=== PATIENT | male | born 1950 | race Caucasian/White ===

== ENCOUNTER 2024-12-29 08:20 | Outpatient (REF) | payer MEDICARE, SELFPAY ==
--- NOTE | ~2024-12-29 | XR_ITS ---
CLINICAL HISTORY: M25.511 - Pain in right shoulder 2 view right shoulder Comparison: None Findings: No fractures or dislocations. Moderate DJD of the acromioclavicular joint with joint space No erosions. No radiopaque foreign body. IMPRESSION: 1. No acute findings. Moderate DJD of the AC joint. This document has been electronically signed by: Jose Vieira MD on 12/30/2024 18:57:24
--- OUTSIDE RECORDS SUMMARY | 2025-01-01 08:41 | XMS_ITS | Clinical Summary ---
Author Organization [facility] 230 [facility] lding Address [address] [place] [address] Phone Care Team Providers Care Medical Scribe Name Role Phone Paula Cool MD Primary Care Provider [phone] Allergies No known active allergies Medications Medication [...] EGD Dr Jolly in past History of [place] (myocardial infarction) 07/25/2016 Overview (11/05/2024): [place] 1990; stents [address] Velasco, [facility] 09/16. PTCA RCA Hypercholesteremia 07/25/2016 Inguinal hernia 07/25/2016 Overview (11/05/2024): CT 6/15 fat containing, right Encounters Date Type Department Care Team Description 11/19/2024 Telephone Adult [address] [phone] Paula Cool MD 11/17/2024 3:30 PM EST Office Visit Adult [facility] [address] [place] [phone] Jonh Hunt PA Postnasal drip (Primary Dx); Nasal congestion 11/17/2024 Telephone Adult [address] [phone] Paula Cool MD Sinusitis from Last 3 Months Immunizations Name Administration [...] 10:45 AM EDT Office Visit Adult Medicine - [place] [address] [place] [address] Paula Cool MD [address] [place] [address] Health Maintenance Due Date Last Done Comments [...] * Annual BMP Blood Test (07/29/2024) Pathologist [facility] Annual BMP Blood Test abstracted Historical Provider MD LUIS ANTONIO Carranza * Lipid panel (07/29/2024) [facility] LDL/HDL Ratio 4 0 - 4 Triglycerides 74 0 - 150 mg/dL Cholesterol 153 0 - 200 mg/dL HDL 43 40 mg/dL LDL Cholesterol 96 0 - 100 mg/dL Blood Venous blood specimen / Unknown Historical Provider LAB BLOOD ORDERAB LES * Hepatitis C Screening (08/18/2019) [facility] Hepatitis C Screening abstracted Historical Provider MD LUIS ANTONIO Carranza from Last 3 Months or Most Recently Relevant to Health Maintenance Care Teams Medical Scribe Relationship Specialty Start Date End Date Paula Cool MD [address] [place] [address] PCP - General Internal Medicine 02/28/21
== END 2024-12-29 08:21 | disposition home or self-care (01) ==
LOC: HO.HOSX 08:20
PROVIDERS: Visit Provider Orthopaedic Surgery
DX: M25.511 Pain in right shoulder (principal); M75.101 Unspecified rotator cuff tear or rupture of right shoulder, not specified as traumatic
CPT/HCPCS: 73030; 99202

== ENCOUNTER 2024-12-29 14:46 | Outpatient (AMB) | payer MEDICARE, SELFPAY ==
--- OUTSIDE RECORDS SUMMARY | 2024-12-29 14:48 | XMS_ITS | Clinical Summary ---
Author Organization [facility] 230 [facility] lding Address [address] [place] [address] Phone Care Team Providers Care Professional Fee Coder Name Role Phone Paula Cool MD Primary Care Provider [phone] Allergies No known active allergies Medications Medication Sig Dispensed Refills Start Date End Date Status sildenafiL (VIAGRA) 50 mg tablet Take 1 tablet (50 mg total) by mouth if needed for erectile dysfunction. 04/04/2022 Active atorvastatin (LIPITOR) 80 mg tablet Take 1 tablet (80 mg total) by mouth 1 (one) time each day. 90 each 1 10/05/2024 Active levothyroxine (SYNTHROID, LEVOTHROID) 50 mcg tablet Take 1 tablet (50 mcg total) by mouth 1 (one) time each day. 90 each 1 10/05/2024 Active omeprazole (PriLOSEC) [address] capsule Take 1 capsule (20 mg total) by mouth 1 (one) time each day. 90 each 1 10/05/2024 Active tamsulosin (FLOMAX) 0.4 mg 24 hr capsule Take 1 capsule (0.4 mg total) by mouth 1 (one) time each day. 90 capsule 12/03/2024 Active tamsulosin (FLOMAX) 0.4 mg 24 hr capsule Take 1 capsule (0.4 mg total) by mouth. 03/20/2017 12/03/2024 Discontinued (Reorder) Active Problems Problem Noted Date Diagnosed Date Hyperlipidemia 11/05/2024 Hypertension 03/02/2024 Sciatica of right side 08/21/2022 Asthma 04/10/2022 Overview (11/05/2024): PVP 08/16 Obesity (BMI 30-39.9) 08/07/2021 Hydronephrosis 03/05/2021 Overview (11/05/2024): hosp 03/15 Moderate tricuspid regurgitation 02/16/2019 Mild aortic stenosis 10/25/2016 Overview (11/05/2024): Echo 2015, Dr velasco Hypothyroidism 08/28/2016 Benign prostatic hyperplasia 07/25/2016 DDD (degenerative disc disease), lumbar 07/25/20 16 Overview (11/05/2024): CT 6/15 Foot drop, left 07/25/2016 Overview (11/05/2024): MRI 07/08 Multilevel spondylitic changes throughout LS spine GERD (gastroesophageal reflux disease) 6 Overview (11/05/2024): Had EGD Dr Jolly in past History of [place] (myocardial infarction) 07/25/2016 Overview (11/05/2024): [place] 1990; stents [address] Velasco, [facility] 09/16. PTCA RCA Hypercholesteremia 07/25/2016 Inguinal hernia 07/25/2016 Overview (11/05/2024): CT 6/15 fat containing, right Encounters Date Type Department Care Team Description 11/19/2024 Telephone Adult [address] [phone] Paula Cool MD 11/17/2024 3:30 PM EST Office Visit Adult [facility] [address] [place] [phone] Jonh Hunt PA Postnasal drip (Primary Dx); Nasal congestion 11/17/2024 Telephone Adult [facility] [address] [place] [phone] Paula Cool MD Sinusitis 09/30/2024 Telephone Adult [facility] [address] [place] [phone] Paula Cool MD Med Refill from Last 3 Months Immunizations Name Administration Dates Next Due Influenza Quadravalent, MDCK , 0.5ml, preservative free (Flucelvax) 6mo and older 02/08/2020 Influenza trivalent, 0.5mL ( Fluad) 65yo and older 09/01/2024,08/11/2023,08/21/2022,08/07,08/16/2020 Pfizer (ages 12 & older) Biv alent, COVID-19 08/11/2023 Pfizer SARS-CoV-2 COVID-19, mRNA, LNP-S, preservative free 09/08/2022,03/05/2022,08/23/2021,02/19,01/29/2021 Pneumococcal conjugate 13 va lent (Prevnar 13, PCV13) 2mo and older 02/16/2019 Pneumococcal polysaccharide 23 valent (Pneumovax 23) 2yo and older 08/16/2020 Tdap Tetanus diptheria acell ular pertussis (Boostrix; Adacel) 7yo and older 02/13/2018 Surgical History Surgery Date Site/Laterality Comments HERNIA REPAIR Left PROCEDURE: HISTORICAL HERNIA REPAIR/ING; COMMENT: inguinal CARDIAC CATHETERIZATION 1997; 2006 PROCEDURE: HISTORICAL CARDIAC CATH; COMMENT: stents Medical History Medical History Date Comments GERD (gastroesophageal reflux disease) 07/25/2016 DX:GERD (gastroesophageal reflux disease) Hyperlipidemia 07/25/2016 DX:Hyperlipidemi a Foot drop, right 07/25/2016 DX:Foot drop, r ight BPH (benign prostatic hypertrophy) 07/25/2016 DX:BPH (benign prostatic hypertrophy) Foot drop, left 07/25/2016 DX:Foot drop, le ft Mild aortic stenosis 10/25/2016 DX:Mild aor tic stenosis; COMMENT: Echo 2015, Dr velasco Colon cancer screening 07/08/2017 DX:Colon cancer screening; COMMENT: [place] j[place] 01/2017 Family History Medical History Relation Name Comments Coronary artery disease Brother 1 Coronary artery disease Brother 2 Heart attack Brother 2 No Known Problems Brother 3 Heart attack Father Other cancer Father bladder Other: heart Mother No Known Problems Son 1 No Known Problems Son 2 Relation Name Status Comments Brother 1 Alive Brother 2 Alive Brother 3 Alive Father Mother Son 1 Alive Son 2 Alive Social History Tobacco Use Types Packs/Day Years Used Date Smoking Tobacco: Never Smokeless Tobacco: Never Alcohol Use Standard Drinks/Week Comments No 0 (1 standard drink = 0.6 oz pur e alcohol) Sex and Gender Information Value Date Recorded Sex Assigned at Not on file Gender Identity Not on file Sexual Orientation Not on file Obstetrics History Last Filed Vital Signs Vital Sign Reading Time Taken Comments Blood Pressure 109/58 11/17/2024 2:06 PM EST Pulse 80 11/17/2024 2:06 PM EST Temperature 36.2 ??C (97.1 ??F) 11/17/2024 2:06 PM ES T Respiratory Rate - - Oxygen Saturation - - Inhaled Oxygen Concentration - - Weight 83.7 kg (184 lb 9.6 oz) 11/17/2024 2:06 P M EST Height 165.1 cm (5' 5 ) 11/17/2024 2:06 PM EST Body Mass Index 30.72 11/17/2024 2:06 PM EST Plan of Treatment Upcoming Encounters Date Type Department Care Team (Late st Contact Info) Description 03/02/2025 10:45 AM EDT Office Visit Adult Medicine [facility] [address] [place] [address] Paula Cool MD [address] [place] [address] Health Maintenance Due Date Last Done Comments Zoster Vaccines (1 of 2) 1969 Depression Screening 11/03/2022 Falls Risk Assessment 11/03/2022 Social Influencers of Health Screening 11/03/2022 Medicare Annual Wellness Visit 08/22/2024 08/22/2023 Hypertension/CHF/CAD Annual BMP Blood Test 07/29/2025 07/29/2024, 07/29/2024 DTaP,Tdap,and Td Vaccines (2 - Td or Tdap) 02/14/2028 02/13/2018 Cholesterol Screening (Lipid Panel) 07/29/2029 07/29/2024, 07/29/2024 Hepatitis C Screening Completed 08/18/2019 Pneumococcal Vaccine: 65+ Years Completed 08/16/2020, 02/16/2019, 05/04/2014 RSV Immunization Patients 60+ Years Old Completed 11/08/2023 Influenza Vaccine Completed 09/01/2024, , 08/21/2022, Additional history exists COVID-19 Vaccine Completed 09/04/2024, , 09/08/2022, Additional history exists HIB Vaccines Aged Out No longer eligi ble based on patient's age to complete this topic HPV Vaccines Aged Out No longer eligi ble based on patient's age to complete this topic Hepatitis A Vaccines Aged Out No long er eligible based on patient's age to complete this topic Hepatitis B Vaccines Aged Out No long er eligible based on patient's age to complete this topic IPV Vaccines Aged Out No longer eligi ble based on patient's age to complete this topic MMR Vaccines Aged Out No longer eligi ble based on patient's age to complete this topic Meningococcal ACWY Vaccine Aged Out N o longer eligible based on patient's age to complete this topic RSV Immunization Patients Under 20 months Aged Out No longer eligible based on patient's age to complete this topic Varicella Vaccines Aged Out No longer eligible based on patient's age to complete this topic Procedures Procedure Name Priority Date/Time Associated Diagnosis Comments ANNUAL BMP BLOOD TEST Routine 07/29/2024 LIPID PANEL Routine 07/29/2024 HEPATITIS C SCREENING Routine 08/18/2019 from Last 3 Months or Most Recently Relevant to Health Maintenance Results * Annual BMP Blood Test (07/29/2024) Pathologist [facility] Annual BMP Blood Test abstracted Historical Provider MD LUIS ANTONIO FOX E * Lipid panel (07/29/2024) [facility] LDL/HDL Ratio 4 0 - 4 Triglycerides 74 0 - 150 mg/dL Cholesterol 153 0 - 200 mg/dL HDL 43 40 mg/dL LDL Cholesterol 96 0 - 100 mg/dL Blood Venous blood specimen / Unknown Historical Provider LAB BLOOD ORDERAB LES * Hepatitis C Screening (08/18/2019) [facility] Hepatitis C Screening abstracted Historical Provider MD LUIS ANTONIO Carranza from Last 3 Months or Most Recently Relevant to Health Maintenance Care Teams Professional Fee Coder Relationship Specialty Start Date End Date Paula Cool MD [address] [place] [address] PCP - General Internal Medicine 02/28/21
--- NOTE | 2024-12-29 15:14 | A.OFFVIS_ITS ---
Intake Visit Reasons: Right shoulder pain and weakness Intake Note: Elvis is a 74 year old male who presents with complaints of progressively worsening right shoulder pain and weakness. The patient describes his pain as sharp in nature. Most of the pain is along the lateral and superior aspects of his shoulder. Symptoms have gotten worse over the last few years in spite of continued non operative treatments. He has had cortisone injections in the past. The most recent injection gave him minimal relief. The patient reports weakness when lifting his right hand above shoulder height. He has been to physical therapy for a total of 8 weeks. The therapy seemed to help with his range of motion but not his strength or discomfort. He has tried Tylenol and anti-inflammatory medicines which gave him minimal relief. Allergies No Known Allergies Allergy (Verified 12/29/24 15:18) Physical Exam Const Other: Well-nourished well-developed very friendly male awake alert and oriented x3 in no acute distress Extrem Other: Bilateral upper extremity examination shows good capillary refill, no skin lesio ns noted, normal sensation light touch Right shoulder examination shows slightly decreased range of motion when compared to his left shoulder, 4/5 strength with supraspinatus testing, positive impingement signs, no instability Results Reviewed Results Reviewed: X-rays of the patient's right shoulder show severe acromioclavicular joint narrowing, a type 3 acromion, no acute bony abnormalities Assessment & Plan Assessment & Plan (1) Unspecified rotator cuff tear or rupture of right shoulder, not specified as traumatic: Code(s): M75.101 - Unspecified rotator cuff tear or rupture of right shoulder, not specified as traumatic Category: Medical Plan Mr. Ivan presents with progressively worsening right shoulder pain and weakness due to impingement syndrome, acromioclavicular joint arthritis and possible full-thickness rotator cuff tearing. Thus, I will order an MRI of his right shoulder for further evaluation. I will see him back once the MRI is completed to discuss the findings and treatment options. Feel free to call me at any time should questions regarding his orthopedic management arise. Thank you very much for asking me to see this very friendly gentleman. I spent 20 minutes in reviewing the patient's records and imaging studies, seeing the patient and documenting in the medical record. Orders: Orders XR shoulder RT min 2V Today M25.511 - Pain in right shoulder MR shoulder RT wo con Today M75.101 - Unspecified rotator cuff tear or rupture of right shoulder, not specified as traumatic Coding Level of Care Code New Pt Level 3 (31153) Complex EM visit Add On G2211 Diagnoses Unspecified rotator cuff tear or rupture of right shoulder, not specified as traumatic M75.101
== END 2024-12-29 15:48 | disposition home or self-care (01) ==
PROVIDERS: PCP Pediatrics; Visit Provider Orthopaedic Surgery
DX: M75.101 Unspecified rotator cuff tear or rupture of right shoulder, not specified as traumatic (principal); M75.41 Impingement syndrome of right shoulder; M19.011 Primary osteoarthritis, right shoulder
CPT/HCPCS: 99203; G2211

== ENCOUNTER → 2024-12-29 14:55 | Outpatient (BNV) | payer MEDICARE, BC, SELFPAY | PROVIDERS: Visit Provider Student in an Organized Health Care Education/Training Program | DX: M25.511 Pain in right shoulder (principal) | CPT/HCPCS: 73030 ==

== ENCOUNTER → 2025-01-01 19:02 | Outpatient (BNV) | payer MEDICARE, BC, SELFPAY | PROVIDERS: PCP Pediatrics; Visit Provider Radiology Diagnostic Radiology | DX: M75.101 Unspecified rotator cuff tear or rupture of right shoulder, not specified as traumatic (principal); M75.51 Bursitis of right shoulder; M19.011 Primary osteoarthritis, right shoulder | CPT/HCPCS: 73221 ==

== ENCOUNTER 2025-01-01 19:07 | Outpatient (REF) | payer MEDICARE, BC, SELFPAY | END 2025-01-01 19:08 | disposition home or self-care (01) | LOC: HO.MRI 19:07 | PROVIDERS: Visit Provider Orthopaedic Surgery | DX: M75.101 Unspecified rotator cuff tear or rupture of right shoulder, not specified as traumatic (principal) | CPT/HCPCS: 73221 ==

== ENCOUNTER 2025-01-27 10:04 | Outpatient (AMB) | payer MEDICARE, BC, SELFPAY ==
--- NOTE | 2025-01-27 10:08 | MHC.OFFVIS ---
Vital Signs 01/27/25 10:16 Height 5 ft 5 in Weight 183 lb BMI 30.4 Intake Visit Reasons: RT shoulder MRI review Intake Note: Elvis is a 74 year old male who presents with complaints of progressively worsening right shoulder pain. The patient describes his pain as sharp in nature. Most of the pain is along the superior and lateral aspects of his shoulder. He reports mild weakness when lifting his right hand above shoulder height. He has tried Tylenol and anti-inflammatory medicines which gave him minimal relief. He has also done physical therapy exercises which aggravated his pain. Allergies No Known Allergies Allergy (Verified 01/27/25 10:09) Medication List - Last Reconciled 01/27/25 by Black Su MD albuterol sulfate 90 mcg/actuation 2 puffs inhalation QID PRN amlodipine mg PO DAILY aspirin 81 mg PO DAILY atorvastatin mg PO DAILY evolocumab (Repatha SureClick) mg subcut ezetimibe 10 mg PO DAILY isosorbide mononitrate ER mg PO DAILY levothyroxine mcg PO DAILY losartan mg PO DAILY metoprolol succinate ER mg PO DAILY omeprazole mg PO DAILY tamsulosin mg PO Physical Exam Vital Signs: BMI result Body Mass Index 30.4 Const Other: Well-nourished well-developed very friendly male awake alert and oriented x3 in no acute distress Extrem Other: Bilateral upper extremity examination shows good capillary refill, no skin lesions noted, normal sensation light touch Right shoulder examination shows almost full range motion when compared to his left shoulder, 4+ out of 5 strength with supraspinatus testing, positive impingement signs, tenderness over his acromioclavicular joint, no instability Results Reviewed Results Reviewed: MRI of the patient's right shoulder show severe acromioclavicular joint narrowing, a type 3 acromion, signal change within the supraspinatus tendon due to rotator cuff tendinosis versus a small rotator cuff tear Assessment & Plan Assessment & Plan (1) Impingement of right shoulder: Code(s): M25.811 - Other specified joint disorders, right shoulder Category: Medical Plan Mr. Ivan presents with progressively worsening right shoulder pain due to impingement syndrome, acromioclavicular joint arthritis and rotator cuff tendinosis versus a small rotator cuff tear. I had a lengthy discussion with the patient regarding the treatment options. At this point he has failed continued non operative treatments. The risks and benefits of right shoulder surgery were discussed at length with the patient. The patient wishes to proceed with surgery. Surgery will most likely involve right shoulder diagnostic arthroscopy with distal clavicle excision, acromioplasty and possible rotator cuff repair should a full-thickness tear be found at the time of his surgery. The patient will be scheduled for her next available date. He will follow-up as instructed. Feel free to call me at any time should questions regarding his orthopedic management arise. I spent 22 minutes in reviewing the patient's records and imaging studies, seeing the patient and documenting in the medical record. Coding Level of Care Code Est Pt Level 3 (18237) Complex EM visit Add On G2211 Diagnoses Impingement of right shoulder M25.811
[2025-01-27 10:16] VITALS: BMI 30.4
--- OUTSIDE RECORDS SUMMARY | 2025-01-27 11:51 | XMS_ITS | Clinical Summary ---
Author Organization [facility] 230 [facility] lding Address [address] [place] [address] Phone Care Team Providers Care Milk Delivery Driver Name Role Phone Paula Cool MD Primary Care Provider [phone] Allergies No known active allergies Medications sildenafiL (VIAGRA) 50 mg tablet Take 1 [...] time each day. 90 capsule 12/03/2024 Active Active Problems Problem Noted Date Diagnosed Date [...] EGD Dr Jolly in past History of [place] (myocardial infarction) 07/25/2016 Overview (11/05/2024): [place] 1990; stents [address] Velasco, [facility] 09/16. PTCA RCA Hypercholesteremia 07/25/2016 Inguinal hernia 07/25/2016 Overview (11/05/2024): CT 6/15 fat containing, right Encounters Date Type Department Care Team Description 11/19/2024 Telephone Adult Medicine [facility] [address] [place] [address] Paula Cool MD 11/17/2024 3:30 PM EST Office Visit Adult Medicine [facility] [address] [place] [phone] Jonh Hunt PA Postnasal drip (Primary Dx); Nasal congestion 11/17/2024 Telephone Adult Medicine [facility] [address] [place] [address] Paula Cool MD Sinusitis from Last [...] HISTORICAL HERNIA REPAIR/ING; COMMENT: inguinal CARDIAC CATHETERIZATION 2006 PROCEDURE: HISTORICAL CARDIAC CATH; COMMENT: stents [...] cancer screening 07/08/2017 DX:Colon cancer screening; COMMENT: [place] dr jolly 01/2017 Family History Medical History Relation [...] Recorded Sex Assigned at Not on file Legal Sex Male 11:51 PM EST Gender Identity Not on file Sexual Orientation [...] 10:45 AM EDT Office Visit Adult Medicine [facility] [address] [place] [address] Paula Cool MD [address] [place] [address] Health Maintenance Due Date Last Done Comments [...] Hepatitis C Screening Completed 08/18/2019 Pneumococcal Vaccine: 50+ Years Completed 08/16/2020, 02/16/2019, 05/04/2014 RSV Immunization [...] patient's age to complete this topic Meningococcal B Vacine Aged Out No lo nger eligible based on patient's age to complete [...] * Annual BMP Blood Test (07/29/2024) Pathologist [facility] Annual BMP Blood Test abstracted [facility] Provider HEALTH MAINTENANCE Final Result * Lipid panel (07/29/2024) [facility] LDL/HDL Ratio 4 0 - 4 Triglycerides 74 0 - 150 mg/dL Cholesterol 153 0 - 200 mg/dL HDL 43 >=40 mg/dL LDL Cholesterol 96 0 - 100 mg/dL Blood Venous blood specimen / Unknown Historical Provider LAB BLOOD ORDERABLES Radha l Result * Hepatitis C Screening (08/18/2019) [facility] Hepatitis C Screening abstracted Historical Provider HEALTH MAINTENANCE Final Result from Last 3 Months or Most Recently Relevant to Health Maintenance Insurance MEDICARE [facility] Care Teams Milk Delivery Driver Relationship Specialty Start Date End Date Paula Cool MD [address] [place], [place] PCP - General Internal Medicine 02/28/21
== END 2025-01-27 10:36 | disposition home or self-care (01) ==
PROVIDERS: PCP Pediatrics; Visit Provider Orthopaedic Surgery
DX: M75.41 Impingement syndrome of right shoulder (principal); M19.011 Primary osteoarthritis, right shoulder; M25.811 Other specified joint disorders, right shoulder
CPT/HCPCS: 99213; G2211

== ENCOUNTER → 2025-01-27 10:04 | Outpatient (BNVA) | payer MEDICARE, BC, SELFPAY | PROVIDERS: PCP Pediatrics; Visit Provider Orthopaedic Surgery | DX: M25.811 Other specified joint disorders, right shoulder (principal) | CPT/HCPCS: 99212 ==

== ENCOUNTER 2025-03-12 08:57 | Day surgery (SDC) | payer MEDICARE, SELFPAY ==
--- OUTSIDE RECORDS SUMMARY | 2025-01-27 15:48 | XMS_ITS | Clinical Summary ---
Author Organization [facility] 230 [facility] l[address] Address [address] [place] [address] Phone Care Team Providers Care Boiler Welder Name Role Phone Paula Cool MD Primary Care Provider [phone] Allergies No known active allergies Medications sildenafiL [...] EGD Dr Jolly in past History of [place] (myocardial infarction) 07/25/2016 Overview (11/05/2024): [place] 1990; stents [address] Velasco, [facility] 09/16. PTCA RCA Hypercholesteremia 07/25/2016 Inguinal hernia 07/25/2016 Overview (11/05/2024): CT 6/15 fat containing, right Encounters Date Type Department Care Team Description 11/19/2024 Telephone Adult Medicine [facility] [address] [place] [address] Paula Cool MD 11/17/2024 3:30 PM EST Office Visit Adult Medicine [facility] [address] [place] [phone] Jonh Hunt PA Postnasal drip (Primary Dx); Nasal congestion 11/17/2024 Telephone Adult Medicine [facility] [address] [place] [address] Paula Cool MD Sinusitis from [...] cancer screening 07/08/2017 DX:Colon cancer screening; COMMENT: [place] dr jolly 01/2017 Family History Medical History [...] 10:45 AM EDT Office Visit Adult Medicine [facility] [address] [place] [address] Paula Cool MD [address] [place] [address] Health Maintenance Due Date Last Done Comments [...] * Annual BMP Blood Test (07/29/2024) Pathologist [facility] Annual BMP Blood Test abstracted [facility] Provider HEALTH MAINTENANCE Final Result * Lipid panel (07/29/2024) [facility] LDL/HDL Ratio 4 0 - 4 Triglycerides 74 0 - 150 mg/dL Cholesterol 153 0 - 200 mg/dL HDL 43 >=40 mg/dL LDL Cholesterol 96 0 - 100 mg/dL Blood Venous blood specimen / Unknown Historical Provider LAB BLOOD ORDERABLES Radha l Result * Hepatitis C Screening (08/18/2019) [facility] Hepatitis C Screening abstracted Historical Provider HEALTH MAINTENANCE Final Result from Last 3 Months or Most Recently Relevant to Health Maintenance Insurance MEDICARE [facility] Care Teams Boiler Welder Relationship Specialty Start Date End Date Paula Cool MD [address] [place], [place] PCP - General Internal Medicine 02/28/21
[2025-02-26 12:08] VITALS: BMI 30.1
--- NOTE | 2025-02-26 14:59 | HO.ANESPROP2 ---
Documented by User: Clarita Rodriguez NP 03/01/25 14:54 HPI - Anesthesia Eval Consult details Narrative: Pending: Cardiac office visit 03/09/25 74yo M for Right Shoulder Arthroscopy,distal clavical excision,acromioplasty,possible rotaor cuff repair, 03/12/25 Cardiac optimized per 01/2025 office visit. Follows [facility] for CAD s/p MA/stents x 4 - last 2022, moderate aortic stenosis (MAGGIE 1.39) [facility] Active Problems Active Problems: All Active Problems Impingement of right shoulder (Acute) Unspecified rotator cuff tear or rupture of right shoulder, not specified as traumatic (Acute) Right shoulder pain (Acute) Past Medical History Medical History Hydronephrosis DDD (degenerative disc disease), lumbar Foot drop, left BPH (benign prostatic hyperplasia) COVID-19 Arthritis Sciatica Back pain GERD (gastroesophageal reflux disease) Asthma Murmur Myocardial infarction Unstable angina Obesity, class 1 Thyroid disease Hyperlipidemia Aortic stenosis HTN (hypertension) CAD (coronary artery disease) Surgical History Surgical History Hx of tonsillectomy History of surgery on upper extremity History of hernia repair History of esophagogastroduodenoscopy (EGD) H/O colonoscopy Hx of angioplasty Hx of cardiac catheterization History of coronary artery stent placement Social History Social History Are you a primary career development director to a significant other at home: No Do you presently have visiting nurse or other home services: No Patient Tobacco Use Status: Never used Tobacco Use of substances other than those prescribed or required for medical reasons: No Have you been hit, kicked, punched, or otherwise hurt by someone within the past year? If so, by whom?: No Are you DNR?: No Advance Directives: No Advance Directives Information Provided: Yes Advance Directives on File: No Poor oral hygiene: Yes Meds Allergies Allergy/AdvReac Type Severity Reaction Status Date / Time No Known Allergies Allergy Verified 03/12/25 09:19 Home Medications ?Medication ?Instructions ?Recorded ?Confirmed ?Last Taken ?Type albuterol sulfate 90 mcg/actuation 2 puff inhalation QID PRN cough 01/27/25 03/12/25 03/11/25 History aerosol inhaler amlodipine 5 mg tablet mg PO DAILY 01/27/25 01/27/25 03/12/25 History aspirin 81 mg tablet,delayed 81 mg PO DAILY 01/27/25 02/26/25 Unknown History release atorvastatin 80 mg tablet 80 mg PO DAILY 01/27/25 02/26/25 Unknown History evolocumab 140 mg/mL subcutaneous 140 mg subcut 2XW 01/27/25 02/26/25 Unknown History pen injector (Jill SalomonMary Jo) ezetimibe 10 mg tablet 10 mg PO DAILY 01/27/25 02/26/25 Unknown History isosorbide mononitrate 60 mg 60 mg PO DAILY 01/27/25 02/26/25 03/12/25 History tablet,extended release 24 hr levothyroxine 50 mcg tablet 50 mcg PO DAILY 01/27/25 02/26/25 Unknown History losartan 50 mg tablet 50 mg PO DAILY 01/27/25 02/26/25 Unknown History metoprolol succinate 25 mg 25 mg PO DAILY 01/27/25 02/26/25 03/12/25 History tablet,extended release 24 hr omeprazole 20 mg capsule,delayed 20 mg PO DAILY 01/27/25 02/26/25 03/12/25 History release tamsulosin 0.4 mg capsule 0.4 mg PO DAILY 01/27/25 02/26/25 03/12/25 History multivitamin 1 tab PO DAILY 02/26/25 02/26/25 Unknown History Exam Height,Weight and Vital Signs: Height 5 ft 5 in Weight 82.1 kg Narrative Narrative: EKG 01/2025 Ventricular Rate: 61 BPM Atrial Rate: 61 BPM P-R Interval: 172 ms QRS Duration: 76 ms Q-T Interval: 378 ms QTC Calculation(Bazett): 380 ms P Lancaster: 6 degrees R Lancaster: -25 degrees T Lancaster: 33 degrees Normal sinus rhythm Moderate voltage criteria for LVH, may be normal variant Borderline ECG When compared with ECG of 29-Aug-2023 08:49, No significant change was found Confirmed by Frederick Valenzuela ([id number]) on 01/28/2025 2:54:43 PM ECHO 10/2024 Summary The left ventricular wall thickness is mildly to moderately increased. Normal left ventricular size and function with ejection fraction of 65-75% visually. No regional wall motion abnormalities. There is mid cavity obliteration without obstruction. Diastolic function is indeterminate. The aortic valve is trileaflet . The aortic valve appears calcified. There is moderate aortic stenosis, mean gradient 39 mmHg, valve area 1.39 cm2. There is trivial aortic regurgitation. The right ventricle is mildly dilated. Right ventricular systolic function is normal. There is no significant pericardial effusion. Comparison Comparison is made to the study report of August 21, 2023. AV mean gradient has increased, progression of since prior study. Nuc Stress 09/2024 Summary 1. Myocardial perfusion imaging is probably normal. There is a mild intensity fixed defect in the inferior wall with normal motion, likely representing diaphragmatic attenuation artifact. No reversible perfusion defect after exercise stress test at an average functional capacity. 2. LV function is normal with an E.F. of >75% at rest and 73 % with stress, with normal wall motion and thickening. 3. EKG portion of the stress test is reported separately. Cardiac Cath 2022 Conclusions Interventional Summary Unstable angina Chronic kidney disease-creatinine 1.5 Right radial artery, 6 Turkish slender-closed with radial band Coronary angiography with left heart catheterization Intravascular ultrasound of the RCA Drug-eluting stent to the distal RCA Drug-eluting stent to the mid RCA Balloon angioplasty to the mid RCA in-stent restenosis Right dominant coronary circulation Severe mid RCA in-stent restenosis-status post balloon angioplasty. There were 2 layers of stent here. The preprocedural MSA was 4 mm2; after high-pressure balloon angioplasty, the MSA was over 9 mm2. Severe mid RCA stenosis-status post IVUS guided PCI with a Synergy 3.0 x 8 mm drug-eluting stent Severe distal RCA stenosis-status post IVUS guided PCI with a Synergy 2.75 x 12 mm drug-eluting stent Severe apical LAD stenosis - medical management Moderate LCx disease LVEDP 14 mmHg, peak to peak gradient of 15 mmHg across the aortic valve The patient presents with unstable angina. He does not have moderate aortic stenosis. Coronary angiography shows that he has stable coronary anatomy in the LAD and left circumflex. There is severe apical LAD stenosis. There was severe in-stent restenosis of the mid RCA and severe stenosis in the distal RCA. We used IVUS guidance to place drug-eluting stents in the distal RCA and mid RCA. There was a segment in the mid RCA in-stent restenosis that was double layer stent. We decided to treat this with balloon angioplasty. There is significant improvement in the MSA after angioplasty and we are quite satisfied with his result. Interventional Recommendations 1. Aspirin 81 mg daily 2. Ticagrelor 90 mg twice daily for 6 to 12 months 3. Risk factor management per guidelines for established coronary artery disease 4. If recurrent in-stent restenosis in the mid RCA, consider referral for brachytherapy Assessment and Plan Assessment Anesthesia Assessment: Chart Reviewed Documented by User: Caren Zamora MD 03/12/25 11:21 PMFSH Past Medical History Medical History Hydronephrosis DDD (degenerative disc disease), lumbar Foot drop, left BPH (benign prostatic hyperplasia) COVID-19 Arthritis Sciatica Back pain GERD (gastroesophageal reflux disease) Asthma Murmur Myocardial infarction Unstable angina Obesity, class 1 Thyroid disease Hyperlipidemia Aortic stenosis HTN (hypertension) CAD (coronary artery disease) Family History Family history of problems with anesthesia: No Surgical History Surgical History Hx of tonsillectomy History of surgery on upper extremity History of hernia repair History of esophagogastroduodenoscopy (EGD) H/O colonoscopy Hx of angioplasty Hx of cardiac catheterization History of coronary artery stent placement History of Problems with Anesthesia: No Social History Social History Are you a primary career development director to a significant other at home: No Do you presently have visiting nurse or other home services: No Patient Tobacco Use Status: Never used Tobacco Use of substances other than those prescribed or required for medical reasons: No Have you been hit, kicked, punched, or otherwise hurt by someone within the past year? If so, by whom?: No Are you DNR?: No Advance Directives: No Advance Directives Information Provided: Yes Advance Directives on File: No Poor oral hygiene: Yes Meds Allergies Allergy/AdvReac Type Severity Reaction Status Date / Time No Known Allergies Allergy Verified 03/12/25 09:19 Home Medications ?Medication ?Instructions ?Recorded ?Confirmed ?Last Taken ?Type albuterol sulfate 90 mcg/actuation 2 puff inhalation QID PRN cough 01/27/25 03/12/25 03/11/25 History aerosol inhaler amlodipine 5 mg tablet mg PO DAILY 01/27/25 01/27/25 03/12/25 History aspirin 81 mg tablet,delayed 81 mg PO DAILY 01/27/25 02/26/25 Unknown History release atorvastatin 80 mg tablet 80 mg PO DAILY 01/27/25 02/26/25 Unknown History evolocumab 140 mg/mL subcutaneous 140 mg subcut 2XW 01/27/25 02/26/25 Unknown History pen injector (Jill Izquierdo) ezetimibe 10 mg tablet 10 mg PO DAILY 01/27/25 02/26/25 Unknown History isosorbide mononitrate 60 mg 60 mg PO DAILY 01/27/25 02/26/25 03/12/25 History tablet,extended release 24 hr levothyroxine 50 mcg tablet 50 mcg PO DAILY 01/27/25 02/26/25 Unknown History losartan 50 mg tablet 50 mg PO DAILY 01/27/25 02/26/25 Unknown History metoprolol succinate 25 mg 25 mg PO DAILY 01/27/25 02/26/25 03/12/25 History tablet,extended release 24 hr omeprazole 20 mg capsule,delayed 20 mg PO DAILY 01/27/25 02/26/25 03/12/25 History release tamsulosin 0.4 mg capsule 0.4 mg PO DAILY 01/27/25 02/26/25 03/12/25 History multivitamin 1 tab PO DAILY 02/26/25 02/26/25 Unknown History Exam Airway Mallampati Class: II TM Dist: >3cm Heart: rrr Lungs: cta Assessment and Plan Assessment Anesthesia Assessment: Anesthesia Plan Discussed Final Anesthetic Review Family History of Problems with Anesthesia: No History of Problems with Anesthesia: No NPO: Yes ASA Class: III Final Preanesthetic Review: No Changes in Pt Med Stat, Meds/Allgs Chart Reviewed, Consent Obtained/Reviewed and Anes Risks/Benef Reviewed Patient Risk: Intermediate Procedure Risk: Intermediate Anesthetic Plan Anesthetic Plan: Regional Block and Agree w/ Assess. and Plan Disposition: Standard PACU
[2025-03-12] VITALS (8 sets, daily range): BP systolic 106–137; BP diastolic 66–78; PULSE 60–65; RESP 12–16; TEMP 36.1–36.7; O2SAT 94–97
[2025-03-12 09:46] LABS: Hematocrit 38.5 % (42.0-52.0); Hemoglobin 13.1 g/dl (14.0-18.0); Mean Corpuscular Hemoglobin 32.3 pg (27.0-33.0); Mean Corpuscular Volume 94.8 fL (80.0-98.0); Platelet Count 148 X10*3/uL (160-400); Red Blood Count 4.06 X10*6/uL (4.60-5.80); Red Cell Distribution Width 13.1 % (11.0-16.0); White Blood Count 4.4 X10*3/uL (4.8-10.8)
[2025-03-12] MEDS: Lactated Ringers 1,000 ML 100 ML IVCONT (09:58)
[2025-03-12 10:01] LABS: Anion Gap 9 (12-20); Blood Urea Nitrogen 19 mg/dL (9-16); Carbon Dioxide 25 mmol/L (22-29); Chloride 111 mmol/L (96-108); Creatinine Clr Calc Pharmacy 60.1; Estimated Glomerular Filt Rate > 60; Glucose Fasting 97 mg/dL (60-99); Potassium 4.2 mmol/L (3.3-5.1); Sodium 141 mmol/L (135-145)
[2025-03-12] MEDS: ceFAZolin Sodium/Dextrose,Iso 2 GM/50 ML PIGGYBACK IV (12:15)
[2025-03-12] MEDS: Acetaminophen 1,000 MG/100 ML PIGGYBACK 400 MG IV (12:51)
--- NOTE | 2025-03-12 14:04 | PM.OP ---
Brief Operative Note Date of Service: 03/12/25 Pre-op diagnosis: Right shoulder impingement syndrome, right shoulder acromioclavicular joint arthritis Post-op diagnosis: other (Right shoulder impingement syndrome, right shoulder acromioclavicular joint arthritis, right shoulder adhesive capsulitis) Procedure: Right shoulder diagnostic arthroscopy with right shoulder arthroscopic distal clavicle excision, right shoulder arthroscopic acromioplasty, right shoulder arthroscopic anterior capsular release, right shoulder manipulation under anesthesia Implants: none Surgeon: Black Su MD Anesthesia: GETA and regional Was an Business Services Vice President used for this Procedure?: No Estimated blood loss (mL): 10 Pathology: none sent Condition: stable Disposition: PACU
--- NOTE | 2025-03-12 14:05 | W.PM.OPN ---
Operative Note Operative Note Date of Service: 03/12/25 Narrative: After the patient was identified as Elvis Ivan and his right shoulder was initialed by myself the patient was brought to the holding area where a right shoulder interscalene regional block was performed by the anesthesiologist in routine fashion. The patient was then brought to the operating room where general anesthesia was induced by the anesthesiologist in routine fashion. The patient was given 2 g of IV Ancef preoperatively for infection prophylaxis. Examination under anesthesia of the patient's right shoulder showed decreased passive range of motion when compared to the left shoulder. The patient's right shoulder had passive forward flexion to 130 degrees compared to 170 degrees, external rotation to 30 degrees compared to 60 degrees, and internal rotation to 40 degrees compared to 50 degrees. The patient was gently positioned in the beach chair position with all bony prominences well padded. The patient's right shoulder region and upper extremity were prepped and draped in sterile fashion. A formal time-out was completed. A #11 scalpel blade was used to make a posterior portal 2 cm inferior and 1 cm medial to the posterolateral corner of the acromion. Blunt trocar technique was used to enter the glenohumeral joint in routine fashion. An anterior portal was made just lateral to the coracoid process after proper positioning was confirmed using a spinal needle. Diagnostic arthroscopy showed minimal degenerative changes of the glenoid and humeral head articular surfaces. There was no evidence of rotator cuff tearing. There was inflammation of the anterior joint capsule consistent with adhesive capsulitis. The ArthroCare Wand was then used to perform an anterior capsular release between the inferior border of the biceps tendon and the superior border of the subscapularis tendon. The arthroscope was then placed from the posterior portal into the subacromial space. A lateral portal was made 2 fingerbreadths lateral to the anterior lateral corner of the acromion. The ArthroCare Wand was used to ablate soft tissues along the undersurface of the acromion as well as to excise the coracoacromial ligament. There was a sharp spur along the undersurface of the acromion which was removed using the hooded bur. The arthroscope was then placed into the lateral portal and the acromioplasty was completed with the bur in the posterior portal using the posterior aspect of the acromion as a cutting block. The ArthroCare Wand was then brought in through the anterior portal and was used to ablate soft tissues along the acromioclavicular joint and distal clavicle. The posterior and superior ligamentous structures were left intact. A distal clavicle excision of 8 mm was performed using the fluted bur. Any remaining bursal tissue was removed using the arthroscopic shaver. The subacromial space was irrigated and then drained. All arthroscopic instruments were removed. A gentle manipulation under anesthesia was then performed. Full passive range of motion was easily attained. The 3 portals were closed with 3-0 nylon interrupted suture. The subacromial space was injected with Marcaine. Dry sterile dressing was placed over all incisions. The patient's right upper extremity was placed into a sling. The patient was awoken and extubated in the operating room. The patient was transferred to the recovery room in stable condition.
[2025-03-12] MEDS: cefTRIAXone sodium 1 GM VIAL IVPUSH (14:09)
== END 2025-03-12 15:20 | disposition home or self-care (01) ==
PROVIDERS: Nurse Practitioner; PCP Pediatrics; Visit Provider Orthopaedic Surgery
PROC: (CPT 29805; principal; 2025-03-12 11:00)
DX: M75.41 Impingement syndrome of right shoulder (principal); M75.01 Adhesive capsulitis of right shoulder; M19.011 Primary osteoarthritis, right shoulder; M25.811 Other specified joint disorders, right shoulder; Z79.82 Long term (current) use of aspirin; Z79.899 Other long term (current) drug therapy
CPT/HCPCS: 29824; 29825; 29826; 36415; 80048; 85027; J0131; J0171; J0665; J0690; J0696; J1100; J2003; J2250; J2405; J2704; J2795; J3010

== ENCOUNTER → 2025-03-12 08:57 | Outpatient (BNV) | payer MEDICARE, SELFPAY | PROVIDERS: PCP Pediatrics; Visit Provider Orthopaedic Surgery | DX: M75.41 Impingement syndrome of right shoulder (principal); M19.011 Primary osteoarthritis, right shoulder; M75.01 Adhesive capsulitis of right shoulder | CPT/HCPCS: 29824; 29826 ==

== ENCOUNTER 2025-03-25 12:41 | Outpatient (AMB) | payer MEDICARE, SELFPAY ==
--- NOTE | 2025-03-25 12:44 | A.OFFVIS_ITS ---
Intake Visit Reasons: PO- RT shoulder , DOS 03/12/25 Intake Note: Elvis is a 74 year old male who presents with complaints of mild to moderate discomfort in his right shoulder after undergoing right shoulder arthroscopic surgery on 03/12/2025. He continues with his home stretching program. He is no longer taking narcotics for his discomfort. Allergies No Known Allergies Allergy (Verified 03/25/25 12:44) Medication List - Last Reconciled 03/25/25 by Black Su MD albuterol sulfate 90 mcg/actuation 2 puffs inhalation QID PRN amlodipine mg PO DAILY aspirin 81 mg PO DAILY atorvastatin 80 mg PO DAILY evolocumab (Repatha SureClick) 140 mg subcut 2XW ezetimibe 10 mg PO DAILY isosorbide mononitrate ER 60 mg PO DAILY levothyroxine 50 mcg PO DAILY losartan 50 mg PO DAILY metoprolol succinate ER 25 mg PO DAILY multivitamin 1 tab PO DAILY omeprazole 20 mg PO DAILY oxycodone 10 mg (2 x 5 mg) PO Q4H PRN tamsulosin 0.4 mg PO DAILY PFSH Medical History Hydronephrosis DDD (degenerative disc disease), lumbar Foot drop, left BPH (benign prostatic hyperplasia) COVID-19 Arthritis Sciatica Back pain GERD (gastroesophageal reflux disease) Asthma Murmur Myocardial infarction Unstable angina Obesity, class 1 Thyroid disease Hyperlipidemia Aortic stenosis HTN (hypertension) CAD (coronary artery disease) Surgical History Hx of tonsillectomy History of surgery on upper extremity History of hernia repair History of esophagogastroduodenoscopy (EGD) H/O colonoscopy Hx of angioplasty Hx of cardiac catheterization History of coronary artery stent placement Social History Are you a primary rental boats caretaker to a significant other at home: No Do you presently have visiting nurse or other home services: No Patient Tobacco Use Status: Never used Tobacco Physical Exam Extrem Other: Right shoulder examination shows that the surgical incisions are healing well, no erythema, mild to moderate discomfort with range of motion, no instability, almost full range of motion when compared to his left shoulder Assessment & Plan Assessment & Plan (1) Right shoulder pain: Code(s): M25.511 - Pain in right shoulder Category: Medical Plan Mr. Ivan is doing very well after undergoing right shoulder arthroscopic diogo timur on 03/12/2025. His sutures were removed and Steri-Strips placed over his incisions. He will continue with his home stretching program. The do's and don'ts of lifting were discussed at length with the patient. He will contact me prior to his follow-up appointment in 6-8 weeks should any questions or concerns arise. Feel free to call me at any time should questions regarding his orthopedic management arise. Coding Level of Care Code Global (58359) Diagnoses Right shoulder pain M25.511
--- OUTSIDE RECORDS SUMMARY | 2025-03-25 15:16 | XMS_ITS | Clinical Summary ---
Author Organization [facility] [address] [facility] l[address] Address [address] [place] [address] Phone Care Team Providers Care Historical Records Administrator Name Role Phone Paula Cool MD Primary Care Provider [phone] Allergies No known active allergies Medications atorvastatin (LIPITOR) 80 mg tablet Take 1 tablet (80 mg total) by mouth 1 (one) time each day. 90 each 1 10/05/20 24 Active levothyroxine (SYNTHROID, LEVOTHROID) 50 mcg tablet Take 1 tablet (50 mcg total) by mouth 1 (one) time each day. 90 each 1 10/05/20 24 Active omeprazole (PriLOSEC) [address] capsule Take 1 capsule (20 mg total) by mouth 1 (one) time each day. 90 each 1 10/05/20 24 Active multivit with minerals/lutein (MULTIVITAMIN 50 PLUS ORAL) Take 1 tablet by mouth. 09/05/20 16 Active losartan (COZAAR) 50 mg tablet Take 1 tablet (50 mg total) by mouth 1 (one) time each day. Active metoprolol succinate (TOPROL-XL) 25 mg 24 hr tablet Take 1 tablet (25 mg total) by mouth 1 (one) time each day. Active ezetimibe (ZETIA) 10 mg tablet Take 1 tablet (10 mg total) by mouth 1 (one) time each day. Active amLODIPine (NORVASC) 5 mg tablet Take 1 tablet (5 mg total) by mouth 1 (one) time each day. Active isosorbide mononitrate (IMDUR) 60 mg 24 hr tablet Take 1 tablet (60 mg total) by mouth 1 (one) time each day. Do not crush or chew. Active evolocumab (Repatha SureClick) 140 mg/mL pen injector injection Inject 1 mL (140 mg total) under the skin 1 (one) time. Active aspirin 81 mg EC tablet Take 1 tablet (81 mg total) by mouth 1 (one) time each day. Active tamsulosin (FLOMAX) 0.4 mg 24 hr capsule Take 1 capsule (0.4 mg total) by mouth 1 (one) time each day. 90 capsule 1 03/02/20 25 Active albuterol HFA (PROAIR HFA ; PROVENTIL HFA ; VENTOLIN HFA) 90 mcg/actuation inhaler Inhale 2 puffs by mouth every 6 (six) hours if needed for wheezing. Active sildenafiL (VIAGRA) 50 mg tablet Take 1 tablet (50 mg total) by mouth if needed for erectile dysfunction. 04/04/20 22 025 Discontinued tamsulosin (FLOMAX) 0.4 mg 24 hr capsule Take 1 capsule (0.4 mg total) by mouth 1 (one) time each day. 90 capsule 12/03/19 25 025 Discontinued(Re order) Active Problems Problem Noted Date Diagnosed Date Hypertension 03/02/2024 Sciatica of right side 08/21/2022 Asthma 04/10/2022 Overview (11/05/2024): PVP 08/16 Obesity (BMI 30-39.9) 08/07/2021 Hydronephrosis 03/05/2021 Overview (11/05/2024): hosp 03/15 Moderate tricuspid regurgitation 02/16/2019 Mild aortic stenosis 10/25/2016 Overview (11/05/2024): Echo 2016, Dr velasco Hypothyroidism 08/28/2016 Benign prostatic hyperplasia 07/25/2016 DDD (degenerative disc disease), lumbar 07/25/20 16 Overview (11/05/2024): CT 6/15 Foot drop, left 07/25/2016 Overview (11/05/2024): MRI 07/08 Multilevel spondylitic changes throughout LS spine GERD (gastroesophageal reflux disease) 6 Overview (11/05/2024): Had EGD Dr Jolly in past History of [place] (myocardial infarction) 07/25/2016 Overview (11/05/2024): [place] 1990; stents [address] Velasco, [facility] 09/16. PTCA RCA Hypercholesteremia 07/25/2016 Inguinal hernia 07/25/2016 Overview (11/05/2024): CT 05/09 fat containing, right Resolved Problems Problem Noted Date Diagnosed Date Resolved Date Hyperlipidemia 11/05/2024 03/02/2025 Encounters Date Type Department Care Team Description 03/02/2025 10:45 AM EDT Office Visit Adult Medicine [address] [address] Paula Cool MD Benign prostatic hyperplasia with lower urinary tract symptoms, symptom details unspecified (Primary Dx); Hypertension, unspecified type; Hypercholesteremia; History of [place] (myocardial infarction); Obesity (BMI 30-39.9) from Last 3 Months Immunizations Name Administration [...] cancer screening 07/08/2017 DX:Colon cancer screening; COMMENT: [place] dr jolly 01/2017 Family History Medical History [...] Date Smoking Tobacco: Never Smokeless Tobacco: Never Tobacco Cessation:Counseling Given: Not Answered Alcohol Use Standard Drinks/Week Comments No 0 (1 standard drink = 0.6 oz pur e alcohol) Housing Instability Answer Date Recorde d Are you worried that in the next 2 months you may not have stable housing? No 02/24/2025 Food Access & Nutrition Answer Date Rec orded Do you have access to a vari ety of food including fruits and vegetables? Yes 02/24/2025 Access to Healthcare Answer Date Record ed Within the last 3 months, ho w many times did you visit the emergency department for your medical care? 0 02/24/2025 Health Literacy Answer Date Recorded How often do you need to hav e someone help you when you read instructions, pamphlets, or other written material from your doctor or pharmacy? Rarely 02/24/2025 Caregiver: How often do you need to have someone help you when you read instructions, pamphlets, or other written material from your doctor or pharmacy? Not on file 02/24/2025 Financial Risk Answer Date Recorded How hard is it for you to pa y for the very basics like food, housing, medical care, and air conditioning / heating? Not very hard 02/24/2025 Transportation Answer Date Recorded Has the lack of transportati on kept you from meetings, work, or from getting things needed for daily living? No Has the lack of transportati on kept you from medical appointments or from getting medications? No 02/24/2025 Social Isolation Answer Date Recorded How often do you feel lonely or isolated from th ose around you? Never 02/24/2025 Food Risk Answer Date Recorded Within the past 12 months we worried whether our food would run out before we got money to buy more. Never true 02/24/2025 Within the past 12 months th e food we bought just didn't last and we didn't have money to get more. Never true 02/24/2025 Dependent Care Answer Date Recorded Do you need help finding or paying for care for your loved ones. For example, child abuse worker or elderly care for an older adult? No 02/24/2025 Education Answer Date Recorded Do you think completing more education or training, like finishing a GED, going to college, or learning a trade, would be helpful for you? N/A 02/24/2025 Employment and Income Answer Date Recor ded During the last four weeks, have you been actively looking for work? No 02/24/2025 Living Situation Answer Date Recorded What is your living situation? 0 02/24/2025 Sex and Gender Information Value Date Recorded Sex Assigned at Not on file Legal Sex Male 11:51 PM EST Gender Identity Not on file Sexual Orientation Not on file Obstetrics History Last Filed Vital Signs Vital Sign Reading Time Taken Comments Blood Pressure 113/57 03/02/2025 10:51 AM EDT Pulse 62 03/02/2025 10:51 AM EDT Temperature 36.7 ??C (98.1 ??F) 03/02/2025 10:51 AM E DT Respiratory Rate - - Oxygen Saturation - - Inhaled Oxygen Concentration - - Weight 84.4 kg (186 lb) 03/02/2025 10:51 AM EDT Height 165.1 cm (5' 5 ) 03/02/2025 10:51 AM EDT Body Mass Index 30.95 03/02/2025 10:51 AM EDT Plan of Treatment Upcoming Encounters Date Type Department Care Team (Late st Contact Info) Description 09/07/2025 10:45 AM EDT Office Visit Adult Medicine - [place] [address] [place] [facility] [place] [address] Paula Cool MD [address] [place] [address] Health Maintenance Due Date Last Done Comments Zoster Vaccines (1 of 2) 1969 Medicare Annual Wellness Visit 08/22/2024 08/22/2023 COVID-19 Vaccine (8 - Pfizer risk season) 2025 09/04/2024, 08/11/2023, 09/08/2022, Additional history exists Hypertension/CHF/CAD Annual BMP Blood Test 07/29/2025 07/29/2024, 07/29/2024 Depression Screening 02/24/2026 02/24/2025 Social Influencers of Health Screening 02/24/2026 02/24/2025 Falls Risk Assessment 03/02/2026 03/02/2025 DTaP,Tdap,and Td Vaccines (2 - Td or Tdap) 02/14/2028 02/13/2018 Cholesterol Screening (Lipid Panel) 07/29/2029 07/29/2024, 07/29/2024 Hepatitis C Screening Completed 08/18/2019 Pneumococcal Vaccine: 50+ Years Completed 08/16/2020, 02/16/2019, 05/04/2014 RSV Immunization Adult Patients Completed 11/08/2023 Influenza Vaccine Completed 09/01/2024, , 08/21/2022, Additional history exists Colorectal Cancer Screening: Colonoscopy Discontinued 03/19/2025, 03/19/2025, 03/19/2025, Additional history exists HIB Vaccines Aged Out [...] age to complete this topic Meningococcal B Vaccine Aged Out No l onger eligible based on patient's age to complete this topic RSV Immunization Patients Under 20 months Aged Out No longer eligible based on patient's age to complete this topic Varicella Vaccines Aged Out No longer eligible based on patient's age to complete this topic Procedures Procedure Name Priority Date/Time Associated Diagnosis Comments EXTERNAL COLONOSCOPY REPORT Routine 03/19/2025 10:31 AM EDT EXTERNAL COLONOSCOPY REPORT Routine 03/19/2025 10:25 AM EDT EXTERNAL COLONOSCOPY REPORT Routine 03/19/2025 10:22 AM EDT EXTERNAL COLONOSCOPY REPORT Routine 03/19/2025 10:19 AM EDT EXTERNAL COLONOSCOPY REPORT Routine 03/19/2025 10:18 AM EDT ANNUAL BMP BLOOD TEST Routine 07/29/2024 LIPID PANEL Routine 07/29/2024 HEPATITIS C SCREENING Routine 08/18/2019 from Last 3 Months or Most Recently Relevant to Health Maintenance Results * External Colonoscopy Report (03/19/2025 10:31 AM EDT) Only the most recent of5 resultswithin the time period is included. Anatomical Region Laterality Modality Endoscopy Historical Provider GI~PROCEDURE ORDERABLES F inal Result * Annual BMP Blood Test (07/29/2024) Annual BMP Blood Test abstracted Historical Provider HEALTH MAINTENANCE Final Result * Lipid panel (07/29/2024) LDL/HDL Ratio 4 0 - 4 Triglycerides 74 0 - 150 mg/dL Cholesterol 153 0 - 200 mg/dL HDL 43 >=40 mg/dL LDL Cholesterol 96 0 - 100 mg/dL Blood Venous blood specimen / Unknown Historical Provider LAB BLOOD ORDERABLES Radha l Result * Hepatitis C Screening (08/18/2019) Hepatitis C Screening abstracted Historical Provider HEALTH MAINTENANCE Final Result from Last 3 Months or Most Recently Relevant to Health Maintenance Insurance MEDICARE [facility] Care Teams Historical Records Administrator Relationship Specialty Start Date End Date Paula Cool MD [address] [place] [address] PCP - General Internal Medicine 02/28/21
== END 2025-03-25 12:58 | disposition home or self-care (01) ==
LOC: HO.HOS 12:42
PROVIDERS: PCP Pediatrics; Visit Provider Orthopaedic Surgery
DX: M25.511 Pain in right shoulder (principal)
CPT/HCPCS: 99024

== ENCOUNTER → 2025-03-25 12:41 | Outpatient (BNVA) | payer MEDICARE, SELFPAY | PROVIDERS: PCP Pediatrics; Visit Provider Orthopaedic Surgery | DX: M25.511 Pain in right shoulder (principal) | CPT/HCPCS: 99212 ==

== ENCOUNTER 2025-05-06 13:46 | Outpatient (AMB) | payer MEDICARE, SELFPAY ==
--- NOTE | 2025-05-06 13:48 | A.OFFVIS_ITS ---
Vital Signs 05/06/25 13:49 Height 5 ft 5 in Weight 181 lb BMI 30.1 Intake Visit Reasons: PO- RT shoulder , DOS 03/12/25 Intake Note: Elvis is a 74 year old male who presents post-operatively after undergoing right shoulder arthroscopic surgery on 03/12/2025. Patient reports he is doing well, taking Tylenol PRN with relief. He continues with his home stretching pr ogram. He denies any fevers or chills. Allergies No Known Allergies Allergy (Verified 05/06/25 13:49) Medication List - Last Reconciled 05/06/25 by Black Su MD albuterol sulfate 90 mcg/actuation 2 puffs inhalation QID PRN amlodipine mg PO DAILY aspirin 81 mg PO DAILY atorvastatin 80 mg PO DAILY evolocumab (Repatha SureClick) 140 mg subcut 2XW ezetimibe 10 mg PO DAILY isosorbide mononitrate ER 60 mg PO DAILY levothyroxine 50 mcg PO DAILY losartan 50 mg PO DAILY metoprolol succinate ER 25 mg PO DAILY multivitamin 1 tab PO DAILY omeprazole 20 mg PO DAILY tamsulosin 0.4 mg PO DAILY FOR[facility]LY [facility], [facility] Medical History Hydronephrosis DDD (degenerative disc disease), lumbar Foot drop, left BPH (benign prostatic hyperplasia) COVID-19 Arthritis Sciatica Back pain GERD (gastroesophageal reflux disease) Asthma Murmur Myocardial infarction Unstable angina Obesity, class 1 Thyroid disease Hyperlipidemia Aortic stenosis HTN (hypertension) CAD (coronary artery disease) Surgical History Hx of tonsillectomy History of surgery on upper extremity History of hernia repair History of esophagogastroduodenoscopy (EGD) H/O colonoscopy Hx of angioplasty Hx of cardiac catheterization History of coronary artery stent placement Social History Are you a primary youth care worker to a significant other at home: No Do you presently have visiting nurse or other home services: No Patient Tobacco Use Status: Never used Tobacco Physical Exam Vital Signs: BMI result Body Mass Index 30.1 Extrem Other: Right shoulder examination shows that the surgical incisions are well healed, no erythema, full active range of motion when compared to his left shoulder, minimal discomfort with range of motion, 5/5 strength with supraspinatus testing Assessment & Plan Assessment & Plan (1) Right shoulder pain: Code(s): M25.511 - Pain in right shoulder Category: Medical Plan Mr. Ivan is doing very well after undergoing right shoulder arthroscopic smith rgery on 03/12/2025. He will continue with his home stretching program. The do's and don'ts of lifting were discussed at length with the patient. He will contact me prior to his follow-up appointment in 3 months should any questions or concerns arise. Feel free to call me at any time should questions regarding his orthopedic management arise. I spent 22 minutes in reviewing the patient's records and imaging studies, seeing the patient and documenting in the medical record. Coding Level of Care Code Global (18749) Diagnoses Right shoulder pain M25.511
[2025-05-06 13:49] VITALS: BMI 30.1
--- OUTSIDE RECORDS SUMMARY | 2025-05-06 16:11 | XMS_ITS | Clinical Summary ---
Author Organization [facility] [address] [facility] l[address] Address [address] [place] [address] Phone Care Team Providers Care Battery Loader Name Role Phone Paula Cool MD Primary Care Provider [phone] Allergies No known active allergies Medications multivit with minerals/lutein (MULTIVITAMIN 50 PLUS ORAL) Take 1 tablet by mouth. 09/05/2016 Active losartan (COZAAR) 50 mg tablet Take [...] (one) time each day. 90 capsule 1 03/02/2025 Active albuterol HFA (PROAIR HFA ; PROVENTIL HFA ; VENTOLIN HFA) 90 mcg/actuation inhaler Inhale 2 puffs by mouth every 6 (six) hours if needed for wheezing. Active atorvastatin (LIPITOR) 80 mg tablet Take 1 tablet (80 mg total) by mouth 1 (one) time each day. 90 each 1 04/07/2025 Active levothyroxine (SYNTHROID, LEVOTHROID) 50 mcg tablet Take 1 tablet (50 mcg total) by mouth 1 (one) time each day. 90 each 1 04/07/2025 Active omeprazole (PriLOSEC) [address] capsule Take 1 capsule (20 mg total) by mouth 1 (one) time each day. 90 each 04/07/2025 Active Active Problems Problem Noted Date Diagnosed Date Hypertension 03/02/2024 Sciatica of right side 08/21/2022 Asthma 04/10/2022 Overview (11/05/2024): PVP 08/16 Obesity (BMI 30-39.9) 08/07/2021 Hydronephrosis 03/05/2021 Overview (11/05/2024): hosp 03/15 Moderate tricuspid regurgitation 02/16/2019 Mild aortic stenosis 10/25/2016 Overview (11/05/2024): Echo 2015, Dr velasco Hypothyroidism 08/28/2016 Benign prostatic hyperplasia 07/25/2016 DDD (degenerative disc disease), lumbar 07/25/20 16 Overview (11/05/2024): CT / Foot drop, left 07/25/2016 Overview (11/05/2024): MRI 07/08 Multilevel spondylitic changes throughout LS spine GERD (gastroesophageal reflux disease) 6 Overview (11/05/2024): Had EGD Dr Jolly in past History of [place] (myocardial infarction) 07/25/2016 Overview (11/05/2024): [place] 1990; stents [address] Velasco, [facility] 09/16. PTCA RCA Hypercholesteremia 07/25/2016 Inguinal hernia 07/25/2016 Overview (11/05/2024): CT 05/09 fat containing, right Resolved Problems Problem Noted Date Diagnosed Date Resolved Date Hyperlipidemia 11/05/2024 03/02/2025 Encounters Date Type Department Care Team Description 03/02/2025 10:45 AM EDT Office Visit Adult Medicine [place] [address] [place] [address] Paula Cool MD Benign prostatic hyperplasia with lower urinary tract symptoms, symptom details unspecified (Primary Dx); Hypertension, unspecified type; Hypercholesteremia; History of [place] (myocardial infarction); Obesity (BMI 30-39.9) from Last [...] stenosis 10/25/2016 DX:Mild aor tic stenosis; COMMENT: [place] 2015, Dr velasco Colon cancer screening 07/08/2017 [...] care for your loved ones. For example, children's counselor or elderly care for an older adult? [...] AM EDT Office Visit Adult Medicine - [place] [address] [place] [address] Paula Cool MD [address] [place] [address] Health Maintenance Due Date Last Done Comments [...] Result * Annual BMP Blood Test (07/29/2024) Pathologist [facility] Annual BMP Blood Test abstracted [facility] Provider HEALTH MAINTENANCE Final Result * Lipid panel (07/29/2024) [facility] LDL/HDL Ratio 4 0 - 4 Triglycerides 74 0 - 150 mg/dL Cholesterol 153 0 - 200 mg/dL HDL 43 >=40 mg/dL LDL Cholesterol 96 0 - 100 mg/dL Blood Venous blood specimen / Unknown Historical Provider LAB BLOOD ORDERABLES Radha l Result * Hepatitis C Screening (08/18/2019) Pathologist [facility] Hepatitis C Screening abstracted Historical Provider HEALTH MAINTENANCE Final Result from Last 3 Months or Most Recently Relevant to Health Maintenance Insurance MEDICARE [facility] Care Teams Battery Loader Relationship Specialty Start Date End Date Paula Cool MD [address] [place] [address] PCP - General Internal Medicine 02/28/21
== END 2025-05-06 14:11 | disposition home or self-care (01) ==
LOC: HO.HOS 13:47
PROVIDERS: PCP Pediatrics; Visit Provider Orthopaedic Surgery
DX: M25.511 Pain in right shoulder (principal)
CPT/HCPCS: 99024

== ENCOUNTER → 2025-05-06 13:46 | Outpatient (BNVA) | payer MEDICARE, SELFPAY | PROVIDERS: PCP Pediatrics; Visit Provider Orthopaedic Surgery | DX: M25.511 Pain in right shoulder (principal) | CPT/HCPCS: 99212 ==

== ENCOUNTER 2025-08-03 09:19 | Outpatient (AMB) | payer MEDICARE, SELFPAY ==
--- NOTE | 2025-08-03 09:21 | MHC.OFFVIS ---
Vital Signs 08/03/25 09:23 Height 5 ft 5 in Weight 176 lb BMI 29.3 Intake Visit Reasons: Right shoulder pain Intake Note: Elvis is a 75 year old male who presents with complaints of mild to moderate discomfort in his right shoulder after undergoing right shoulder arthroscopic surgery on 03/12/2025. He continues with his home exercise program. He denies any fevers or chills. Allergies No Known Allergies Allergy (Verified 08/03/25 09:23) Medication List - Last Reconciled 08/03/25 by Black Su MD albuterol sulfate 90 mcg/actuation 2 puffs inhalation QID PRN amlodipine mg PO DAILY aspirin 81 mg PO DAILY atorvastatin 80 mg PO DAILY evolocumab (Repatha SureClick) 140 mg subcut 2XW ezetimibe 10 mg PO DAILY isosorbide mononitrate ER 60 mg PO DAILY levothyroxine 50 mcg PO DAILY losartan 50 mg PO DAILY metoprolol succinate ER 25 mg PO DAILY multivitamin 1 tab PO DAILY omeprazole 20 mg PO DAILY tamsulosin 0.4 mg PO DAILY PFSH Medical History Hydronephrosis DDD (degenerative disc disease), lumbar Foot drop, left BPH (benign prostatic hyperplasia) COVID-19 Arthritis Sciatica Back pain GERD (gastroesophageal reflux disease) Asthma Murmur Myocardial infarction Unstable angina Obesity, class 1 Thyroid disease Hyperlipidemia Aortic stenosis HTN (hypertension) CAD (coronary artery disease) Surgical History Hx of tonsillectomy History of surgery on upper extremity History of hernia repair History of esophagogastroduodenoscopy (EGD) H/O colonoscopy Hx of angioplasty Hx of cardiac catheterization History of coronary artery stent placement Social History Are you a primary care management specialist to a significant other at home: No Do you presently have visiting nurse or other home services: No Patient Tobacco Use Status: Never used Tobacco Physical Exam Vital Signs: BMI result Body Mass Index 29.3 Const Other: Well-nourished well-developed very friendly male awake alert and oriented x3 in no acute distress Extrem Other: Right shoulder examination shows that the surgical incisions are well healed, no erythema, full range of motion when compared to his left shoulder, 5/5 strength with supraspinatus testing, no instability Assessment & Plan Assessment & Plan (1) Right shoulder pain: Code(s): M25.511 - Pain in right shoulder Category: Medical Plan Elvis continues to do very well after undergoing right shoulder arthroscopic surgery on 03/12/2025. He will continue with his home stretching program. The do's and don'ts of lifting were discussed at length with the patient. He will follow up with me on an as-needed basis should his symptoms worsen in any way. Feel free to call me at any time should questions regarding his orthopedic management arise. I spent 20 minutes in reviewing the patient's records and imaging studies, seeing the patient and documenting in the medical record. Coding Level of Care Code Est Pt Level 3 (32380) Complex EM visit Add On G2211 Diagnoses Right shoulder pain M25.511
[2025-08-03 09:23] VITALS: BMI 29.3
--- OUTSIDE RECORDS SUMMARY | 2025-08-03 10:45 | XMS_ITS | Clinical Summary ---
Author Organization [facility] 230 [facility] l[address] Address [address] [place] [address] Phone Care Team Providers Care Supplier Engineer Name Role Phone Paula Cool MD Primary Care Provider [phone] Allergies No known active allergies Medications multivit [...] EGD Dr Jolly in past History of [place] (myocardial infarction) 07/25/2016 Overview (11/05/2024): [place] 1990; stents [address] Velasco, [facility] 09/16. PTCA RCA Hypercholesteremia 07/25/2016 Inguinal hernia 07/25/2016 Overview (11/05/2024): CT 05/09 fat containing, right Resolved Problems Problem Noted Date Diagnosed Date Resolved Date Hyperlipidemia 11/05/2024 03/02/2025 Immunizations Name Administration Dates Next Due Influenza [...] cancer screening 07/08/2017 DX:Colon cancer screening; COMMENT: [place] dr jolly 01/2017 Family History Medical History [...] for your loved ones. For example, child psychiatrist or elderly care for an older adult? [...] 62 03/02/2025 10:51 AM EDT Temperature 36.7 C (98.1 F) 03/02/2025 10:51 AM EDT Respiratory Rate - - Oxygen Saturation - - Inhaled Oxygen Concentration - - Weight 84.4 kg (186 lb) 03/02/2025 10:51 AM EDT Height 165.1 cm (5' 5 ) 03/02/2025 10:51 AM EDT Body Mass Index 30.95 03/02/2025 10:51 AM EDT Plan of Treatment Upcoming Encounters Date Type Department Care Team (Late st Contact Info) Description 09/07/2025 10:45 AM EDT Office Visit Adult Medicine [facility] [address] [place] [address] Paula Cool MD [address] [place] [address] Health Maintenance Due Date Last Done Comments Zoster Vaccines (1 of 2) 2000 Medicare Annual Wellness Visit 08/22/2024 08/22/2023 COVID-19 Vaccine ( season) 2025 09/04/2024, 08/11/2023, 09/08/2022, Additional history exists Influenza Vaccine (#1) 2025 , 08/11/2023, 08/21/2022, Additional history exists Hypertension/CHF/CAD Annual BMP Blood Test 07/29/2025 07/29/2024, 07/29/2024 Social Influencers of Health Screening 02/24/2026 02/24/2025 Falls Risk Assessment 03/02/2026 03/02/2025 DTaP,Tdap,and Td Vaccines (2 - Td or Tdap) 02/14/2028 02/13/2018 Cholesterol Screening (Lipid Panel) 07/29/2029 07/29/2024, 07/29/2024 Hepatitis C Screening Completed 08/18/2019 Pneumococcal Vaccine: 50+ Years Completed 08/16/2020, 02/16/2019, 05/04/2014 RSV Immunization Adult Patients Completed 11/08/2023 Depression Screening Completed 02/24/2025 Colorectal Cancer Screening: Colonoscopy Discontinued 03/19/2025, 03/19/2025, [...] Diagnosis Comments EXTERNAL COLONOSCOPY REPORT Routine 03/19/2025 10:18 AM EDT ANNUAL BMP BLOOD TEST Routine 07/29/2024 LIPID PANEL Routine 07/29/2024 HEPATITIS C SCREENING Routine 08/18/2019 from Last 3 Months or Most Recently Relevant to Health Maintenance Results * External Colonoscopy Report (03/19/2025 10:18 AM EDT) Anatomical Region Laterality Modality Endoscopy Historical Provider GI~PROCEDURE ORDERABLES F inal Result * Annual BMP Blood Test (07/29/2024) Annual BMP Blood Test abstracted Historical Provider HEALTH MAINTENANCE Final Result * Lipid panel (07/29/2024) Pathologist [facility] LDL/HDL Ratio 4 0 - 4 Triglycerides 74 0 - 150 mg/dL Cholesterol 153 0 - 200 mg/dL HDL 43 >=40 mg/dL LDL Cholesterol 96 0 - 100 mg/dL Blood Venous blood specimen / Unknown Historical Provider LAB BLOOD ORDERABLES Radha l Result * Hepatitis C Screening (08/18/2019) Pathologist [facility] Hepatitis C Screening abstracted Historical Provider HEALTH MAINTENANCE Final Result from Last 3 Months or Most Recently Relevant to Health Maintenance Insurance MEDICARE [facility] Care Teams Supplier Engineer Relationship Specialty Start Date End Date Paula Cool MD [address] [place] [id number] PCP - General Internal Medicine 02/28/21
--- OUTSIDE RECORDS SUMMARY | 2025-08-03 10:45 | XMS_ITS ---
Author Name [facility] Organization Unknown Care Team Organization Name Specialty Phone Email Start Date End Da nikko [facility] 07/14/2025 [facility] [place] [facility] 10/02/2022 07/13/2024
== END 2025-08-03 09:35 | disposition home or self-care (01) ==
LOC: HO.HOS 09:20
PROVIDERS: PCP Pediatrics; Visit Provider Orthopaedic Surgery
DX: M25.511 Pain in right shoulder (principal)
CPT/HCPCS: 99213; G2211

== ENCOUNTER → 2025-08-03 09:19 | Outpatient (BNVA) | payer MEDICARE, SELFPAY | PROVIDERS: PCP Pediatrics; Visit Provider Orthopaedic Surgery | DX: M25.511 Pain in right shoulder (principal); Z98.890 Other specified postprocedural states | CPT/HCPCS: 99212 ==